=== PATIENT | male | born 1995 | race Caucasian/White ===

== ENCOUNTER 2018-04-26 04:33 | Emergency (ER) | payer OTHER ==
[~2018-04-26] VITALS: Ht 167.6 cm; Wt 53.5 kg
[2018-04-26] MEDS ORDERED: SODIUM CHLORIDE FLUSH 10ML SYR IVF ONE (05:00)
[2018-04-26 05:05] LABS: MICROSCOPIC NOT IND
[2018-04-26 05:37] LABS: BASOPHILS # (AUTO) 0.02 x10^3/uL (0-0.1); BASOPHILS % (AUTO) 0 % (0-1); EOSINOPHILS # (AUTO) 0.09 x10^3/uL (0-0.4); EOSINOPHILS % (AUTO) 1 % (1-7); LYMPHOCYTES # (AUTO) 1.63 x10^3/uL (1-3.4); LYMPHOCYTES % (AUTO) 25 % (22-44); MD NO; MEAN CORPUSCULAR HEMOGLOBIN 31.2 pg (27.5-34.5); MEAN CORPUSCULAR HGB CONC 34.3 g/dL (33.2-36.2); MEAN CORPUSCULAR VOLUME 91.1 fL (81-97); MEAN PLATELET VOLUME 9.8 fL (7.4-10.4); MONOCYTES # (AUTO) 0.56 x10^3/uL (0.2-0.8); MONOCYTES % (AUTO) 9 % (2-9); NEUTROPHILS # (AUTO) 4.34 x10^3/uL (1.8-6.8); NEUTROPHILS % (AUTO) 65 % (42-75); PLATELET COUNT 138 x10^3/uL (130-400); RED BLOOD COUNT 4.57 x10^6/uL (4.38-5.82); RED CELL DISTRIBUTION WIDTH 13.4 % (9.4-14.8)
[2018-04-26 05:50] LABS: ALBUMIN 3.7 g/dL (3.4-5.0); ANION GAP 6 mmol/L (5-15); CALCIUM 8.4 mg/dL (8.5-10.1); CHLORIDE 109 mmol/L (98-107)
[2018-04-26 05:53] LABS: ALANINE AMINOTRANSFERASE 22 U/L (12-78); ALKALINE PHOSPHATASE 67 U/L (45-117); BILIRUBIN,TOTAL 0.6 mg/dL (0.2-1.0); CREATININE 0.74 mg/dL (0.7-1.3); TOTAL PROTEIN 6.8 g/dL (6.4-8.2)
[2018-04-26 06:22] LABS: CULTURE INDICATED? NO
[2018-04-26 07:00] VITALS: BP 110/69
== END 2018-04-26 07:23 | disposition home or self-care (01) ==
LOC: ED 07:17
DX: N23 Unspecified renal colic (principal); K59.00 Constipation, unspecified
CPT/HCPCS: 36415; 74176; 80053; 81003; 85025; 99285

== ENCOUNTER 2019-03-16 11:45 | Emergency (ER) | payer OTHER ==
[~2019-03-16] VITALS: Ht 167.6 cm; Wt 57.1 kg
[2019-03-16] MEDS ORDERED: ONDANSETRON ODT 4 MG ONE (12:09)
[2019-03-16] MEDS ORDERED: KETOROLAC 60 MG/2 ML ONE (12:10)
--- NOTE | 2019-03-16 12:26 | NUR ---
Recieved report from TASK MATHEUS White. All questions answered.
[2019-03-16] MEDS ORDERED: ONDANSETRON ODT 4 MG PO ONE (12:30)
[2019-03-16] MEDS ORDERED: KETOROLAC 30 MG/1 ML IM ONE (12:30)
[2019-03-16 12:33] LABS: MICROSCOPIC AUTO
[2019-03-16 12:34] LABS: CULTURE INDICATED? NO
[2019-03-16] MEDS ORDERED: SUBOXONE PO (12:44)
--- NOTE | 2019-03-16 12:49 | NUR ---
Pt resting on gurney connected to NIBP and continous pulse ox. NADN. Pt is AOX4. is at bedisde. Call light within reach. Bedrail up x 1. No needs expressed at this time. Pt states, "I feel better since the pain medication he gave me."
[2019-03-16 14:05] VITALS: BP 107/67
--- NOTE | 2019-03-16 14:06 | NUR ---
pt reports new pain level 1/10 and tolerable.
== END 2019-03-16 14:08 | disposition home or self-care (01) ==
LOC: ED 12:24
DX: R31.29 Other microscopic hematuria (principal); R11.2 Nausea with vomiting, unspecified; R10.32 Left lower quadrant pain
CPT/HCPCS: 74176; 81001; 96372; 99284; J1885; Q0162